=== PATIENT | female | born 1945 | race Caucasian/White ===

== ENCOUNTER → 2016-10-20 | Outpatient (CLI) | payer OTHER ==
[~2016-10-20] MED LIST: AMLODIPINE-BEN1 EAC3 PO; AMOXICILLIN875 MG PO; ASPIR-LOW81 MG PO; CRESTOR10 MG PO; DESYREL100 MG PO; HYDROCHLOROTH12.5 M3 PO; TRAZODONE HCL100 MG PO; VOLTAREN 1% GE100 GM TP
== END | disposition home or self-care (01) ==
LOC: RES 12:19
DX: R05 Cough (principal)
CPT/HCPCS: 94070

== ENCOUNTER 2017-08-07 19:08 | Inpatient (IN) | payer OTHER ==
[~2017-08-07] VITALS: Ht 167.6 cm; Wt 57.6 kg
[~2017-08-07 19:08] MED LIST changes: -AMLODIPINE-BEN1 EAC3 PO; -CRESTOR10 MG PO; +CRESTOR40 MG PO; +NORVASC10 MG PO
[2017-08-07 19:37] LABS: BASOPHIL (%) 0.4 % (0-1); EOSINOPHIL (%) 0.3 % (0-5); HEMATOCRIT 42.4 % (36.0-46.0); HEMOGLOBIN 14.7 G/DL (11.9-15.5); IMMATURE GRANULOCYTE (%) 2.8 % (0.0-0.7); LYMPHOCYTE (%) 20.1 % (15-42); LYMPHOCYTE COUNT 1.9 K/uL (1.0-2.8); MCH 30.8 PG (29.0-34.0); MCHC 34.7 G/DL (30.0-36.0); MCV 88.7 FL (83-99); MONOCYTE (%) 8.5 % (3-12); MONOCYTE COUNT 0.8 K/uL (0-0.8); NEUTROPHIL (%) 67.9 % (45-76); NEUTROPHIL COUNT 6.3 K/uL (1.8-6.4); PLATELET COUNT 249 K/uL (156-360); RBC DIS.WIDTH-SD 38.7 % (39-53); RED BLOOD COUNT 4.78 M/uL (3.80-5.20); WHITE BLOOD COUNT 9.3 K/uL (4.1-10.2)
[2017-08-07 19:49] LABS: CHLORIDE 105 mEq/L (99-109); POTASSIUM 3.5 mEq/L (3.7-5.4); SODIUM 140 mEq/L (136-147)
[2017-08-07 19:50] LABS: GLUCOSE 93 mg/dL (70-99)
[2017-08-07 19:54] LABS: CREATININE 1.7 mg/dL (0.6-1.3); GFR ESTIMATE (CALCULATED) 31 mL/min/
[2017-08-07 19:55] LABS: UREA NITROGEN (BUN) 34 mg/dL (9-23)
[2017-08-07 22:21] LABS: TROP-I INTERPRETATION NEGATIVE; TROPONIN-I 0.02 ng/mL (0.0-0.30)
[2017-08-07 23:12] LABS: APPEARANCE CLEAR ((CLEAR)); BILIRUBIN NEGATIVE; BLOOD SMALL; COLOR YELLOW ((YELLOW)); GLUCOSE (STRIP) NEGATIVE; KETONES 5; LEUKOCYTES TRACE; NITRITE NEGATIVE; PROTEIN (STRIP) 30; SPECIFIC GRAVITY 1.023 (1.000-1.030); UROBILINOGEN 0.2 MG/DL (0.2-1.0)
[2017-08-07 23:38] LABS: BACTERIA NONE SEEN /HPF; EPITHELIAL CELLS NONE SEEN /HPF; MUCUS TRACE /LPF; RED BLOOD CELLS 0-5 /HPF (0-5); UCUL ADDED? NO; WHITE BLOOD CELLS 0-5 /HPF (0-5)
[2017-08-07] MEDS ORDERED: BACTRIM,SEPT1 TABLET PO (23:45)
[2017-08-07] MEDS ORDERED: KEFLEX500 MG PO (23:45)
[2017-08-08 04:01] VITALS: BP 134/66
[2017-08-08 07:50] VITALS: BP 136/78
[2017-08-08 12:39] VITALS: BP 142/78
[2017-08-08] MEDS ORDERED: BREO ELLIPTA I1 EACH IH (14:56)
[2017-08-08] MEDS ORDERED: OMEPRAZOLE40 M1 PO (14:56)
[2017-08-08 17:27] VITALS: BP 148/80
[2017-08-08 19:59] VITALS: BP 140/75
[2017-08-09] VITALS (7 sets, daily range): BP systolic 115–149; BP diastolic 58–72
[2017-08-09 07:29] LABS: BASOPHIL (%) 0.2 % (0-1); EOSINOPHIL (%) 0 % (0-5); HEMATOCRIT 36.8 % (36.0-46.0); HEMOGLOBIN 12.3 G/DL (11.9-15.5); IMMATURE GRANULOCYTE (%) 1.1 % (0.0-0.7); LYMPHOCYTE (%) 5.5 % (15-42); LYMPHOCYTE COUNT 0.8 K/uL (1.0-2.8); MCH 29.8 PG (29.0-34.0); MCHC 33.4 G/DL (30.0-36.0); MCV 89.1 FL (83-99); MONOCYTE (%) 1.7 % (3-12); MONOCYTE COUNT 0.3 K/uL (0-0.8); NEUTROPHIL (%) 91.5 % (45-76); NEUTROPHIL COUNT 13.6 K/uL (1.8-6.4); RBC DIS.WIDTH-CV 12.4 % (11.8-14.6); RBC DIS.WIDTH-SD 40.8 % (39-53); RED BLOOD COUNT 4.13 M/uL (3.80-5.20); WHITE BLOOD COUNT 14.9 K/uL (4.1-10.2)
[2017-08-09 07:44] LABS: ALBUMIN 3.5 G/DL (3.2-4.8); ALKALINE PHOSPHATASE 49 IU/L (3-129); ALT (GPT) 15 IU/L (3-49); AST (GOT) 16 IU/L (2-34); CHLORIDE 110 MEQ/L (99-109); DIRECT BILIRUBIN 0.1 mg/dL (0.0-0.3); GFR ESTIMATE (CALCULATED) 58 mL/min/; POTASSIUM 3.3 MEQ/L (3.7-5.4); SODIUM 144 MEQ/L (136-147); TOTAL BILIRUBIN 0.4 MG/DL (0.0-1.0); TOTAL PROTEIN 5.4 G/DL (6.4-8.3); UREA NITROGEN (BUN) 22 mg/dL (9-23)
[2017-08-09 07:53] LABS: PLAT.SUFFICIENCY ADEQUATE
[2017-08-09 07:59] LABS: PLATELET COUNT 170 K/uL (156-360)
[2017-08-09 08:08] LABS: GLUCOSE 158 mg/dL (70-99)
[2017-08-10 06:34] LABS: BASOPHIL (%) 0.1 % (0-1); EOSINOPHIL (%) 0 % (0-5); HEMATOCRIT 38.2 % (36.0-46.0); HEMOGLOBIN 12.9 G/DL (11.9-15.5); IMMATURE GRANULOCYTE (%) 1.6 % (0.0-0.7); LYMPHOCYTE (%) 4.9 % (15-42); LYMPHOCYTE COUNT 0.7 K/uL (1.0-2.8); MCH 30.7 PG (29.0-34.0); MCHC 33.8 G/DL (30.0-36.0); MONOCYTE (%) 1.9 % (3-12); MONOCYTE COUNT 0.3 K/uL (0-0.8); NEUTROPHIL (%) 91.5 % (45-76); NEUTROPHIL COUNT 13.9 K/uL (1.8-6.4); PLATELET COUNT 174 K/uL (156-360); RBC DIS.WIDTH-CV 12.7 % (11.8-14.6); RBC DIS.WIDTH-SD 42.7 % (39-53); WHITE BLOOD COUNT 15.2 K/uL (4.1-10.2)
[2017-08-10 06:58] LABS: CHLORIDE 108 MEQ/L (99-109); CREATININE 1.1 MG/DL (0.6-1.3); GFR ESTIMATE (CALCULATED) 52 mL/min/; GLUCOSE 162 mg/dL (70-99); POTASSIUM 3.9 MEQ/L (3.7-5.4); SODIUM 142 MEQ/L (136-147); UREA NITROGEN (BUN) 24 mg/dL (9-23)
[2017-08-10 08:22] VITALS: BP 125/72
[2017-08-10] MEDS ORDERED: MEDROL DOSEPAK4 MG PO (09:13)
[2017-08-10] MEDS ORDERED: AUGMENTIN875 MG PO (09:13)
[2017-08-10] MEDS ORDERED: Robitussin AC,Tussi- PO (09:14)
== END 2017-08-10 16:06 | disposition home or self-care (01) | DRG 193 ==
LOC: RME 19:08 → EME 19:08 → EDOF 08-08 02:42 → ENRESERV 08-08 02:45 → 2EAST 08-08 03:54 → ENPENDDIS 08-10 → 2EAST 08-10 16:06
PROVIDERS: Hospitalist; Internal Medicine; Physician Assistant
DX: J10.08 Influenza due to other identified influenza virus with other specified pneumonia (principal); J96.00 Acute respiratory failure, unspecified whether with hypoxia or hypercapnia; E86.0 Dehydration; J12.9 Viral pneumonia, unspecified; J15.9 Unspecified bacterial pneumonia; J04.0 Acute laryngitis; E87.6 Hypokalemia; I10 Essential (primary) hypertension; E78.5 Hyperlipidemia, unspecified; G43.909 Migraine, unspecified, not intractable, without status migrainosus; Z85.3 Personal history of malignant neoplasm of breast; Z79.82 Long term (current) use of aspirin
CPT/HCPCS: 71046; 71250; 80048; 80076; 81003; 83605; 84484; 85025; 86615 90; 87040; 87070; 87081; 87205; 87449; 87502; 93005; 94640; 94640 76; 99202; 99281; 99285; J0696; J1650; J2920; J2930; J3370; J7030; J7050